=== PATIENT | male | born 1960 | race Caucasian/White ===

== ENCOUNTER → 2016-10-10 | Outpatient (CLI) | payer MEDICARE, OTHER ==
[~2016-10-10] MED LIST: APRACLONIDINE 1% 0.1 ML OPH ONE; ASPI-664 PO; GABA300C16 PO; INSU100C5 SQ; LISI30TA47 PO; METO-448 PO; MEVA40 PO; NPH,100V10 SQ; PHENYLephrine 10% 5 ML OPH ONE; PROPARACAINE 0.5% 15 ML OPH ONE; SITA1TAB7 PO; TROPICAMIDE 1% 3 ML OPH ONE
== END | disposition home or self-care (01) ==
LOC: RAD 09:51
PROVIDERS: ATTEND Ophthalmology
DX: H26.40 Unspecified secondary cataract (principal)
CPT/HCPCS: 66821